=== PATIENT | female | born 1940 | race Caucasian/White ===

== ENCOUNTER 2018-07-11 10:02 | Observation (INO) | payer OTHER ==
[2018-07-11] MEDS ORDERED: NS 1,000 ML IV ONE (10:09)
--- NOTE | 2018-07-11 10:36 | EDPHY ---
H & P Stated Complaint: Low blood pressure - feels dizzy. Time Seen by Provider: 07/11/18 10:09 HPI/ROS: CHIEF COMPLAINT: Fatigue HISTORY OF PRESENT ILLNESS: The patient presents to the ED after she woke this morning with fatigue. The patient does have a history of paroxysmal atrial fibrillation and currently is on Xarelto. The patient has been out visiting family from [place]. She exercises frequently without any complaints of chest pain or shortness of breath. She denies any acute chest pain or shortness of breath today. The patient did have a recent fall resulting in a left rib injury. The patient also has a history of hypotension and is currently on glucocorticoids for autonomic dysfunction. The patient has been intolerant to amiodarone in the past. She did require cardioversion x1 last year. She takes no medications for hypertension or rate control. The patient denies any fever, cough or congestion. She denies asymmetric calf pain or swelling. She denies pleuritic chest pain REVIEW OF SYSTEMS: A comprehensive 10 point review of systems is otherwise negative aside from elements mentioned in the history of present illness. Source: Patient Exam Limitations: No limitations - Personal History Current Tetanus Diphtheria and Acellular Pertussis (TDAP): Yes - Medical/Surgical History Hx Asthma: No Hx Chronic Respiratory Disease: Yes Hx Diabetes: No Hx Cardiac Disease: No Hx Renal Disease: No Hx Cirrhosis: No Hx Alcoholism: No Hx HIV/AIDS: No Hx Splenectomy or Spleen Trauma: No Other PMH: Low blood pressure. A-fib. Chronic lung infection - MAC - Social History Smoking Status: Never smoked - Physical Exam Exam: General Appearance: Alert, no distress Eyes: Pupils equal and round no pallor or injection ENT, Mouth: Mucous membranes moist Respiratory: There are no retractions, lungs are clear to auscultation Cardiovascular: Irregular rate consistent with atrial fibrillation Gastrointestinal: Abdomen is soft and nontender, no masses, bowel sounds normal Neurological: A&O, normal motor function, normal sensory exam, normal cranial nerves Skin: Warm and dry, no rashes Musculoskeletal: Neck is supple nontender Extremities: symmetrical, full range of motion Psychiatric: Patient is oriented X 3, there is no agitation Constitutional: Initial Vital Signs Temperature (C) 36.6 C 07/11/18 10:03 Heart Rate 94 07/11/18 10:03 Respiratory Rate 16 07/11/18 10:03 Blood Pressure 105/70 07/11/18 10:03 O2 Sat (%) 98 07/11/18 10:03 O2 Delivery Mode Room Air Allergies/Adverse Reactions: azithromycin Allergy (Verified 07/11/18 10:09) doxycycline Allergy (Verified 07/11/18 10:09) Home Medications: Medication Instructions Recorded JOHNATHAN-CITRATE PLUS VITAMIN D TAB 07/11/18 Fludrocortisone Acetate 07/11/18 Midodrine HCl 07/11/18 Thyroid 07/11/18 Xarelto 07/11/18 Medical Decision Making - Diagnostics EKG Interpretation: EKG: Complete interpretation has been separately recorded in the [facility] archive. Summary impression: Atrial fibrillation, rate 114, no ST segment elevation noted, occasional PVC Imaging Results: Imaging Impressions Chest X-Ray 07/11/18 10:36 Impression: 1. Subacute nondisplaced anterior left 6th rib fracture. 2. Diffuse interstitial prominence, which could related to emphysema/COPD, with right perihilar scarring/atelectasis. 3. Cardiomegaly without failure. ED Course/Re-evaluation: The patient presents to the ED with fatigue secondary to recurrent atrial fibrillation. The patient has no symptoms suggestive of cardiac ischemia or pulmonary embolism. The patient has been intolerant to medications for rate control in the past secondary to her adrenal insufficiency. The patient did receive a L of normal saline in the emergency department. She was quite concerned about hypotension prior to arrival. I discussed the case with Dr. Kramer from Cardiology. The patient will be admitted to the PCU under the care of the hospitalist service. They will attempt to do cardioversion this afternoon if possible. If not will be scheduled tomorrow morning. I discussed the case with Dr. Parker at noon who will admit the patient. Additionally the patient did have a chest x-ray which demonstrates a nondisplaced left rib fracture from her recent fall. There is no evidence of a hemothorax or pneumothorax. Differential Diagnosis: Differential diagnosis considered includes atrial fibrillation, atrial flutter, heart failure, rib fracture, pneumothorax, hemothorax - Data Points Laboratory Results: Laboratory Results 07/11/18 10:24 07/11/18 10:24 07/11/18 07/11/18 07/11/18 10:26 10:24 10:24 WBC 6.03 10^3/uL 10^3/uL (3.80-9.50) RBC 3.80 10^6/uL L 10^6/uL (4.18-5.33) Hgb 11.1 g/dL L g/dL (12.6-16.3) Hct 34.1 % L % (38.0-47.0) MCV 89.7 fL fL (81.5-99.8) MCH 29.2 pg pg (27.9-34.1) MCHC 32.6 g/dL g/dL (32.4-36.7) RDW 15.0 % % (11.5-15.2) Plt Count 202 10^3/uL 10^3/uL (150-400) MPV 10.7 fL fL (8.7-11.7) Neut % (Auto) 60.3 % % (39.3-74.2) Lymph % (Auto) 27.4 % % (15.0-45.0) Bollinger % (Auto) 10.3 % % (4.5-13.0) Eos % (Auto) 1.0 % % (0.6-7.6) Baso % (Auto) 0.7 % % (0.3-1.7) Nucleat RBC Rel Count 0.0 % % (0.0-0.2) Absolute Neuts (auto) 3.64 10^3/uL 10^3/uL (1.70-6.50) Absolute Lymphs (auto) 1.65 10^3/uL 10^3/uL (1.00-3.00) Absolute Monos (auto) 0.62 10^3/uL 10^3/uL (0.30-0.80) Absolute Eos (auto) 0.06 10^3/uL 10^3/uL (0.03-0.40) Absolute Basos (auto) 0.04 10^3/uL 10^3/uL (0.02-0.10) Absolute Nucleated RBC 0.00 10^3/uL 10^3/uL (0-0.01) Immature Gran % 0.3 % % (0.0-1.1) Immature Gran # 0.02 10^3/uL 10^3/uL (0.00-0.10) Sodium 139 mEq/L mEq/L (135-145) Potassium 3.7 mEq/L mEq/L (3.3-5.0) Chloride 103 mEq/L mEq/L (97-110) Carbon Dioxide 25 mEq/l mEq/l (22-31) Anion Gap 11 mEq/L mEq/L (6-14) BUN 23 mg/dL mg/dL (7-23) Creatinine 1.0 mg/dL mg/dL (0.6-1.0) Estimated GFR 54 Glucose 116 mg/dL H mg/dL (70-100) Calcium 9.2 mg/dL mg/dL (8.5-10.4) POC Troponin I 0.01 ng/mL ng/mL (0.00-0.08) Medications Given: Discontinued Medications Sodium Chloride (Ns) 1,000 mls @ 0 mls/hr IV EDNOW ONE; Wide Open PRN Reason: Protocol Stop: 07/11/18 10:10 Last Admin: 07/11/18 10:52 Dose: 1,000 mls Point of Care Test Results: Chemistry 07/11/18 10:26 POC Troponin I 0.01 ng/mL ng/mL (0.00-0.08) Departure - Departure Disposition: [facility] Inpatient Acute Clinical Impression: Atrial fibrillation with RVR Rib fracture Qualifiers: Encounter type: initial encounter Rib fracture type: single rib Fracture type: closed Laterality: left Qualified Code(s): S22.32XA - Fracture of one rib, left side, initial encounter for closed fracture Condition: Good Referrals: NONE *PRIMARY CARE P,. [Primary Care Provider] - As per Instructions
[2018-07-11 10:49] LABS: PLATELET COUNT 202 10^3/uL (150-400)
--- NOTE | 2018-07-11 12:08 | CPEKG ---
Test Reason : OPEN Blood Pressure : / mmHG Vent. Rate : 114 BPM Atrial Rate : 147 BPM P-R Int : 163 ms QRS Dur : 077 ms QT Int : 337 ms P-R-T Axes : 161 038 004 degrees QTc Int : 465 ms Atrial fibrillation Paired ventricular premature complexes Consider left ventricular hypertrophy Confirmed by Dayron Rizvi ([id number]) on 07/11/2018 12:08:22 PM Referred By: Confirmed By:Dayron Rizvi
[2018-07-11] MEDS ORDERED: ONDANSETRON DISINTEGRATING 4 MG TAB PO PRN (12:34)
[2018-07-11] MEDS ORDERED: ONDANSETRON 4 MG/2 ML VIAL IVP PRN (12:34)
[2018-07-11] MEDS ORDERED: DILTIAZEM 25 MG/5 ML VIAL IVP SCH (12:45)
--- NOTE | 2018-07-11 13:04 | GHP ---
DATE OF ADMISSION: 07/11/2018 The patient is a delightful 78-year-old female with a history of paroxysmal atrial fibrillation, auto nomic insufficiency, and mycobacterium avium complex, who presents with atrial fibrillation. This ty pically presents as malaise and palpitations. She was diagnosed not this past November, but November. At that point in time, she was cardioverted, but it did not last. She was started on amiodarone , which she found fairly debilitating and stopped taking it after a few weeks. She has had no recurr ence. She lives in [facility] near [place]. She is currently here helping her daughter a nd son-in-law move. She did crash into some stairs injuring her flank the other day and was diagnose d with a rib fracture. She has not had chest pain. She has not had lower extremity edema. She has not had PND or orthopnea . She has had a couple of coronary angiograms and has no coronary disease per her history. No fever , chills, cough, sputum, nausea, vomiting, diarrhea. She does not drink much alcohol. REVIEW OF SYSTEMS: Complete 10-point review of systems conducted and negative except as noted in HPI . PAST MEDICAL HISTORY: 1. Atrial fibrillation as in the HPI. 2. Autonomic insufficiency, which was diagnosed after a long workup at the [place], mostly for hypotension. She takes midodrine and . 3. History of rheumatic fever as a child. She denies having mitral stenosis. 4. 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 SOCIAL HISTORY: Retired nurse. No tobacco. Rare alcohol. Lives in [facility]. FAMILY HISTORY: Parents . PHYSICAL EXAMINATION: VITAL SIGNS: Temp 36.6, blood pressure 105/70, breathing 16 times a minute, 9 8% on room air. GENERAL: No acute distress. HEENT: Sclerae anicteric. Oropharynx clear. Mucous membranes moist. NECK: Supple. No lymphadenopathy or JVD. LUNGS: Clear to auscultation bilateral ly. HEART: S1, S2. Tachycardic. ABDOMEN: Soft, nontender, nondistended. LOWER EXTREMITIES: No edema. Calves are nontender. SKIN: Without rash. NEUROLOGIC: Exam is nonfocal. LABORATORY DATA: White count 6, hematocrit 34, unknown baseline. Platelets 202,000. Sodium 139, po tassium 3.7, chloride 103, bicarb 25, BUN 23, creatinine 1.0, glucose 116. Point of care troponin is 0.01. EKG interpreted by me shows atrial fibrillation at 114, with normal axis and intervals. No S T-T wave changes. She has some upsloping ST depressions in V5, V6. No corresponding changes in 1 or L. Chest x-ray interpreted by me shows no infiltrate, cardiomegaly without failure, and a subacute nondisplaced left rib fracture. I discussed the case with Dr. Leonardo Rizvi. ASSESSMENT AND PLAN: A 78-year-old female with rib fracture, paroxysmal atrial fibrillation. 1. Atrial fibrillation, is paroxysmal. She tolerates it poorly. The case has been discussed with Juaquin horowitz. Will see her for possible cardioversion today if not tomorrow. She has not been intolera nt of diltiazem in the past. Will give her 1 time dose of 10 mg. She will be n.p.o. 2. Anemia. It is unclear if this is a new finding. She has good primary care in [place]. 3. Rib fracture. It is possible that the pain from this is driving her atrial fibrillation. I will give her a lidocaine patch. 4. Mycobacterium avium complex. She is afebrile. She was noted to have significant infiltrate seen on our chest x-ray. Is being followed as an outpatient. DISPOSITION: Observation. /[id number]/MODL
[2018-07-11] MEDS ORDERED: ATROPINE SULFATE 1 MG/10 ML SYR IVP ONE (13:06)
--- NOTE | 2018-07-11 13:45 | GCON ---
CARDIOLOGY CONSULTATION CHIEF COMPLAINT: Palpitations. HISTORY OF PRESENT ILLNESS: This is a 78-year-old female with a history of paroxysmal atrial fibrill ation, who apparently woke up this morning with complaints of fatigue, lightheadedness, and palpitati ons. The patient came to the emergency room where she was found to have atrial fibrillation with rap id ventricular response with a rate of 140. She denies any chest pain. She does have a history of P AF and has been cardioverted 2 years ago. 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 Additi onally, she has been tried on amiodarone in the past as well, which had severe side effects. Current ly, she is resting quietly. Blood pressure is stable at 120/70, heart rate is 142 with irregular rhy thm. PAST MEDICAL HISTORY: Significant for paroxysmal atrial fibrillation, Person's disease. HOME MEDICATIONS: Consist of fluticasone, midodrine, Xarelto. SOCIAL HISTORY: Occasional alcohol use. No smoking. Is . FAMILY HISTORY: Noncontributory. REVIEW OF SYSTEMS: HEENT: The patient denies any visual changes. No headache. No throat pain. No neck pain. No dental issues. CARDIOVASCULAR: She indicates positive palpitations. RESPIRATORY: No shortness of breath currently. ABDOMEN: No abdominal discomfort. MUSCULOSKELETAL: No upper ext remity pain. No lower extremity pain. No lower extremity edema. NEUROLOGICAL: No new neurologic d eficits. PHYSICAL EXAM: VITAL SIGNS: Patient is currently afebrile, . Blood pressure is currently 120/72, heart rate of 142, respirations 12, sat 95% on room air. HEENT: Pupils equal, round, and r eactive to light and accommodation. Extraocular movements intact. CARDIOVASCULAR: Irregularly irre gular, S1, S2. Soft 2/6 systolic murmur heard best at the right upper sternal border. LUNGS: Clear to auscultation bilaterally. ABDOMEN: Soft, nontender. No guarding. EXTREMITIES: No clubbing, n o cyanosis, no edema. NEUROLOGIC: The patient is alert and oriented x3. LABORATORY VALUES: Currently show a white cell of 6, hemoglobin 11, hematocrit 34, platelet count of 202. Chemistry showing sodium 139, potassium 3.7, creatinine of 1.0, calcium 9.2. Troponins are ne gative x1 set. ASSESSMENT/PLAN: Atrial fibrillation, rapid ventricular response. At this time, we will plan on victor m ctively cardioverting the patient given her symptomatic status and inability to tolerate rate-control ling medications. The patient has been compliant with her Xarelto for the last year and indicates ra rely missing any dosing. We will check a surface echo prior to her cardioversion, which will be plan judy later this afternoon, since the patient did have a light breakfast at 8 a.m. /[id number]/MODL
--- NOTE | 2018-07-11 14:19 | ECHO ---
[email or web address] [address] [address] Main: [phone] Fax: Transthoracic Echocardiogram Name: ARNOLD SPANN MR#: [id number] Study Date: 07/11/2018 Study Time: 01:17 PM Date of : 1940 Age: 78 year(s) Height: 165.1 cm (65 in.) Weight: 53.52 kg (118 lb.) BSA: 1.58 m2 Gender: Female Examination: Echo Indication: New onset of Atrial Fibrillation Image Quality: Contrast: Requested by: Jaiden Manriquez BP: 94 mmHg/66 mmHg Heart Rate: Rhythm: Indication: New onset of Atrial Fibrillation Procedure Staff Jawbone Puller: Shahid Garibay RDCS Reading Physician: Jaiden Manriquez MD Requesting Provider: Conclusions: Normal global systolic LV function. EF is 68 %. There is no significant mitral valve regurgitation. There is no significant aortic valve regurgitation. Measurements: Chambers Valvular Assessment AV/MV Valvular Assessment TV/PV Normal Normal Normal Name Value Range Name Value Range Name Value Range Ao Genesis (MM): 2.8 cm (2.2 cm-3.7 AV Vmax: 1.26 m/s (1 m/s-1.7 TR Vmax: 2.62 mm/s ( - ) cm) m/s) TR PGmax: 27 mmHg ( - ) IVSd (2D): 0.9 cm (0.6 cm-1.1 AV maxP mmHg ( - ) syst. PAP: 32 mmHg ( - ) cm) LVOT Vmax: 0.72 m/s (0.7 m/s-1.1 PV Vmax: 1.11 m/s (0.6 m/s-0.9 LVDd (2D): 3.9 cm (3.9 cm-5.3 m/s) m/s) cm) MV E Vmax: 0.74 m/s ( - ) PV PGmax: 5 mmHg ( - ) LVDs (2D): 2.4 cm (2.1 cm-4 cm) LVPWd (2D): 1.0 cm ( - ) LVEF (2D): 68 (>=54 %) Continued Measurements: Chambers Valvular Assessment AV/MV Valvular Assessment TV/PV Name Value Name Value Name Value LADs Lon.4 cm MV E/E' Septal: 16.20 CVP (est.): 5 mmHg LA Area: 18.4 cm2 MV E/E' Lateral: 14.90 LA Volume: 57 ml LA Volume Index: 36.1 ml/m2 Patient: ARNOLD SPANN Study Date: 07/11/2018 Page 1 of 2 01:17 PM Findings: Left Ventricle: Normal size left ventricle. No LV hypertrophy. Normal global systolic LV function. EF is 68 %. No regional wall motion abnormality. The rhythm is atrial fibrillation. The rate ranged from 120-140 bpm during exam.. Right Ventricle: Normal size right ventricle. Normal RV function. Left Atrium: The left atrium is mildly dilated. Right Atrium: The right atrium is mildly dilated. Mitral Valve: The mitral valve is normal in appearance. Mild mitral valve leaflet calcification is present. No mitral stenosis is present. There is no significant mitral valve regurgitation. Aortic Valve: The aortic valve is tri-leaflet and functions normally. There is no significant aortic valve regurgitation. No aortic valve stenosis is present. Tricuspid Valve: The tricuspid valve is normal in appearance and function. Trivial tricuspid valve regurgitation. The pulmonary artery pressure is normal. Pulmonic Valve: The pulmonic valve is normal in appearance and function. Aorta: The aorta is normal. Pericardium: No pericardial effusion. (No Signature Object) Patient: ARNOLD SPANN Study Date: 07/11/2018 Page 2 of 2 01:17 PM D:_[id number]
[2018-07-11] MEDS ORDERED: DILTIAZEM 25 MG/5 ML VIAL IVP ONE (14:45)
[2018-07-11] MEDS: LIDOCAINE 4%/MENTHOL 1% PATCH TD SCH (14:59)
[2018-07-11] MEDS ORDERED: PROPOFOL 200 MG/20 ML VIAL ONE (15:59)
[2018-07-11] MEDS ORDERED: ATROPINE SULFATE 1 MG/10 ML SYR ONE (15:59)
--- NOTE | 2018-07-11 16:09 | PDANEPAE ---
ANE History of Present Illness 78 yo for dccv afib ANE Past Medical History - Cardiovascular History Hx Hypertension: No Hx Arrhythmias: Yes Hx Chest Pain: No Hx Coronary Artery / Peripheral Vascular Disease: No - Pulmonary History Hx Oxygen in Use at Home: No Hx Sleep Apnea: No - Endocrine History Hx Diabetes: No ANE Review of Systems Review of Systems: - Exercise capacity METS (RN): 4 METS ANE Patient History - Allergies Allergies/Adverse Reactions: azithromycin Allergy (Verified 07/11/18 14:50) Vomiting doxycycline Allergy (Verified 07/11/18 14:50) Vomiting - Home Medications Home medications: home medication list seen and reviewed Home Medications: Calcium Carb W/Vit D [Calcium Carb W/Vit D 500/200 (*)] 500 mg PO BID@09/16 [Last Taken 07/11/18] Clindamycin Phosphate 1 roby TP BID 07/11/18 [Last Taken 07/11/18] Clobetasol Propionate 1 roby TP DAILY PRN 07/11/18 [Last Taken 07/10/18] Fludrocortisone Acetate [Florinef 0.1 MG (RX)] 0.2 mg PO DAILY@07/11/18 [ Last Taken 07/11/18] Levothyroxine [Synthroid 25 mcg (*)] 12.5 mcg PO DAILY@07/11/18 [Last Taken 07/11/18] Midodrine HCl 6.5 mg PO BID@,07/11/18 [Last Taken 07/11/18] Rivaroxaban [Xarelto 15mg (*)] 15 mg PO DAILY@07/11/18 [Last Taken 07/11/18] - Smoking Hx Smoking Status: Never smoked ANE Labs/Vital Signs - Labs Result Diagrams: 07/11/18 10:24 07/11/18 10:24 - Vital Signs Blood Pressure: 80/51 Heart Rate: 90 Respiratory Rate: 16 O2 Sat (%): 97 Height: 5 ft 5 in Weight: 53.524 kg ANE Physical Exam - Airway Mallampati Score: Class 2 Mouth exam: normal dental/mouth exam - Pulmonary Pulmonary: no respiratory distress - Cardiovascular Cardiovascular: regular rate and rhythym - ASA Status ASA Status: II ANE Anesthesia Plan Anesthesia Plan: GA with mask Urgent/Emergent Case: Armani dyson completed preop but documented later for safe timely pt care
--- NOTE | 2018-07-11 16:12 | POSTANESTH ---
Post Anesthetic Evaluation Cardiovascular Status: Normal, Stable Respiratory Status: Normal, Stable, Requires Airway Assist Pain Control: Adequate, Prn Tx Ordered Nausea/Vomiting Control: Adequate, Prn Tx Ordered Complications Possibly Related to Anesthesia: None Noted
--- NOTE | 2018-07-11 16:24 | CPEKG ---
Test Reason : OPEN Blood Pressure : / mmHG Vent. Rate : 063 BPM Atrial Rate : 063 BPM P-R Int : 158 ms QRS Dur : 084 ms QT Int : 423 ms P-R-T Axes : 053 058 018 degrees QTc Int : 434 ms Sinus rhythm Sinus pause Probable left atrial enlargement Borderline T wave abnormalities Sinus rhythm has replaced atrial fibrillation noted on prior ECG Confirmed by Navjot Perera ([id number]) on 07/11/2018 4:24:04 PM Referred By: Confirmed By:Navjot Perera
--- NOTE | 2018-07-11 16:26 | PDPROPOC ---
Sedation Plan of Care Sedation Plan of Care: mental status noted, patient educated of risks, benefits , alternatives, patient can tolerate sedation ASA Classification: ASA 2 Planned drugs: other Mallampati Score: Class 2 Mallampati Reference Image: Patient passed 3-3-2 rule?: Yes
--- NOTE | 2018-07-11 16:26 | PDHPUP ---
History & Physical Update H&P update statement: This history and physical update is based on an assessment of the patient which was completed after admission or registration (within 24 hours), but prior to the surgery/procedure. H&P update: H&P reviewed & patient examined, no change in patient's condition since H&P completed
[2018-07-11] MEDS ORDERED: PATCH REMOVAL 1 EA PATCH TD SCH (21:00)
--- NOTE | 2018-07-11 22:07 | CPIP ---
DATE OF PROCEDURE: 07/11/2018 INDICATION FOR PROCEDURE: Atrial fibrillation. PROCEDURE: As per [facility] protocol, the patient was brought in a fasting state to [facility]. Anesthesia was present for the entire duration of the procedure. The patient has a history of r epair of paroxysmal atrial fibrillation with recent atrial fibrillation with a rapid ventricular resp onse. The patient has not been responsive to medical therapy, rate-controlling agents, or antiarrhyt hmics in the past. After informed consent was obtained, the patient was sedated by anesthesia. Afte r sedation was performed, the patient was cardioverted from her baseline rhythm of atrial fibrillatio n at a rate of 94 to sinus rhythm at a synchronized cardioversion of 200 joules. Post cardioversion, the patient's rate was approximately 52 in a sinus rhythm. Blood pressure was 120/70 throughout the entire procedure and 130/80 at the end of the procedure. The patient tolerated the procedure well w ith no complications. IMPRESSION: Successful cardioversion utilizing synchronized 200 joules, converting atrial fibrillati on to normal sinus rhythm. PLAN: The patient will be returned back to her room and plan for discharge per primary team. /[id number]/MODL
[2018-07-11] MEDS: ACETAMINOPHEN 325 MG TAB PO PRN (22:41)
[2018-07-12] MEDS ORDERED: LEVOTHYROXINE 25 MCG TAB PO SCH (08:32)
[2018-07-12] MEDS ORDERED: MIDODRINE HCL 5 MG TAB PO SCH (08:32)
[2018-07-12] MEDS ORDERED: FLUDROCORTISONE ACETATE 0.1 MG TAB PO SCH (08:45)
[2018-07-12] MEDS: ACETAMINOPHEN 325 MG TAB PO PRN (08:56)
[2018-07-12] MEDS ORDERED: CLINDAMYCIN PHOSPHATE TP SCH (09:00)
[2018-07-12] MEDS: LIDOCAINE 4%/MENTHOL 1% PATCH TD SCH (09:51)
[2018-07-12 10:07] VITALS: BP 135/72
--- NOTE | 2018-07-12 10:34 | GDS ---
DIAGNOSES: 1. Atrial fibrillation with rapid ventricular response status post cardioversion. 2. Autonomic insufficiency, severe, currently on medications to control this. 3. History of rheumatic fever as a child. 4. 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 PROCEDURES DONE: 1. Echocardiogram, EF 68%. 2. Interventional cardiac procedure, successful cardioversion into normal sinus rhythm. CONSULTATIONS: Jaiden Manriquez, Cardiology. HOSPITAL COURSE: The patient is a 78-year-old with a history significant for severe orthostatic hypo tension on medications, as well as previous atrial fibrillation. She came in with palpitations and w as found to be in atrial fibrillation with rapid ventricular response. She was admitted to the [facility], monitored, and evaluated by Cardiology. She had an echocardiogram and underwent cardioversion, which was successful into sinus rhythm. She has been previously anticoagulated with Xarelto. Curren jordana, she feels good. She continues in sinus rhythm with PACs and wants to go home. CONDITION ON DISCHARGE: Good. She is afebrile. Heart rate 65, blood pressure 147/85, she is 90% on room air. DISCHARGE MEDICATIONS: Please see discharge medication form. FOLLOWUP: She will follow up with her primary care provider in [place], and she also plans to follo w up with a asphalt raker when she returns home. /[id number]/MODL
[2018-07-12] MEDS ORDERED: CALCIUM CARB W/VIT D 500 MG TAB PO SCH (13:00)
[2018-07-13] MEDS ORDERED: RIVAROXABAN 15 MG TAB PO SCH (08:32)
== END 2018-07-12 10:27 | disposition home or self-care (01) ==
LOC: F2W 13:55
PROVIDERS: ADMIT Internal Medicine; ATTEND Internal Medicine
PROC: 5A2204Z Restoration of Cardiac Rhythm, Single (ICD-10-PCS; principal; 2018-07-11)
DX: I48.0 Paroxysmal atrial fibrillation (principal); G90.8 Other disorders of autonomic nervous system; I95.9 Hypotension, unspecified; A31.0 Pulmonary mycobacterial infection; E86.9 Volume depletion, unspecified; S22.32XA Fracture of one rib, left side, initial encounter for closed fracture; W19.XXXA Unspecified fall, initial encounter; Z86.79 Personal history of other diseases of the circulatory system; Z79.01 Long term (current) use of anticoagulants
CPT/HCPCS: 71046; 92960; 93005; 93306; 96374; 99285; G0378; J2704; 84484-PO; J0461

== ENCOUNTER 2018-09-01 08:21 | Emergency (ER) | payer OTHER ==
--- NOTE | 2018-09-01 08:37 | EDPHY ---
H & P Stated Complaint: A - Fib since 3am, feels lightheaded, dizzy and nauseous. Time Seen by Provider: 09/01/18 08:30 HPI/ROS: CHIEF COMPLAINT: Recurrent atrial fibrillation HISTORY OF PRESENT ILLNESS: The patient has a history of paroxysmal atrial fibrillation. She presents to the ED with recurrent atrial fibrillation that began at 3:00 a.m. in the morning. The patient has had nothing to eat or drink outside of her regular medications. The patient has a history of autonomic dysfunction and cannot tolerate elizabeth blocking agents. She has been entirely compliant with her Xarelto. She was seen in the emergency department approximately 2 months ago with similar symptoms. She underwent cardioversion at that point time. She followed up with her behavior interventionist in [place] who was reluctant to consider ablation as the patient had been asymptomatic for 2 years. The patient is currently visiting [place] from [place]. She denies any acute chest pain or shortness of breath. She denies additional acute complaints. REVIEW OF SYSTEMS: A comprehensive 10 point review of systems is otherwise negative aside from elements mentioned in the history of present illness. Source: Patient Exam Limitations: No limitations - Personal History Current Tetanus Diphtheria and Acellular Pertussis (TDAP): Yes - Medical/Surgical History Hx Asthma: No Hx Chronic Respiratory Disease: Yes Hx Diabetes: No Hx Cardiac Disease: No Hx Renal Disease: No Hx Cirrhosis: No Hx Alcoholism: No Hx HIV/AIDS: No Hx Splenectomy or Spleen Trauma: No Other PMH: Low blood pressure. A-fib. Chronic lung infection - MAC. - Social History Smoking Status: Never smoked - Physical Exam Exam: General Appearance: Alert, no distress Eyes: Pupils equal and round no pallor or injection ENT, Mouth: Mucous membranes moist Respiratory: There are no retractions, lungs are clear to auscultation Cardiovascular: Tachycardic, irregular Gastrointestinal: Abdomen is soft and nontender, no masses, bowel sounds normal Neurological: A&O, normal motor function, normal sensory exam, normal cranial nerves Skin: Warm and dry, no rashes Musculoskeletal: Neck is supple nontender Extremities: symmetrical, full range of motion Constitutional: Initial Vital Signs Temperature (C) 36.6 C 09/01/18 08:24 Heart Rate 91 09/01/18 08:24 Respiratory Rate 16 09/01/18 08:24 Blood Pressure 106/68 09/01/18 08:24 O2 Sat (%) 97 09/01/18 08:24 O2 Delivery Mode [Procedural Non-Rebreather Mask 2nd] O2 Delivery Mode [Procedural Non-Rebreather Mask 1st] O2 Delivery Mode Non-Rebreather Mask O2 (L/minute) [Procedural 2nd] 15 O2 (L/minute) [Procedural 1st] 15 O2 (L/minute) 15 Allergies/Adverse Reactions: azithromycin Allergy (Verified 07/11/18 14:50) Vomiting doxycycline Allergy (Verified 07/11/18 14:50) Vomiting Home Medications: Medication Instructions Recorded Calcium Carb W/Vit D [Calcium Carb 500 mg PO BID@,07/11/18 W/Vit D 500/200 (*)] Clindamycin Phosphate 1 roby TP BID 07/11/18 Clobetasol Propionate 1 roby TP DAILY PRN 07/11/18 Fludrocortisone Acetate [Florinef] 0.2 mg PO DAILY@07/11/18 Levothyroxine [Synthroid 25 mcg 12.5 mcg PO DAILY@07/11/18 (*)] Midodrine HCl 6.5 mg PO BID@,07/11/18 Rivaroxaban [Xarelto 15mg (*)] 15 mg PO DAILY@07/11/18 Medical Decision Making - Diagnostics EKG Interpretation: EKG: Complete interpretation has been separately recorded in the [facility] archive. Summary impression: Atrial fibrillation, rate 148, nonspecific ST T wave changes noted Post conversion EKG: EKG: Complete interpretation has been separately recorded in the [facility] archive. Summary impression: Sinus rhythm, multiple PVCs Procedures: Procedure: Conscious sedation. Indication: Cardioversion The patient is an appropriate candidate to tolerate procedural sedation. The patient's vital signs and mental status are appropriate. The risks, benefits and alternatives of the sedation were discussed with the patient. The patient is ASA classification 2. The patient's Mallampati airway score was 2 and the patient did meet the 3-3-2 airway measurements. A time out was completed. The patient was sedated with 60 mg of propofol. The patient was monitored with continuous pulse oximetry, monitoring and evaluation advisor and end tidal CO2. There were no complications and no significant hypoxemia. I performed both the sedation and the procedure. The total time I spent at the bedside during the procedural sedation was 16 min minutes. The patient was examined after the procedural sedation and has returned to their pre-sedation baseline with normal vital signs and a normal examination. Procedure: Electrical cardioversion. Indication: Rapid atrial fibrillation, intolerant to medical therapy. Risks, benefits, alternatives discussed with the patient and consent obtained. The patient was on a continuous monitoring and evaluation advisor, with airway equipment at the bedside. The patient was on continuous pulse oximetry. The cardioversion was performed with 200 joules biphasic current. The cardioversion was successful. The patient tolerated the procedure well with no complications. The procedure was performed by myself. ED Course/Re-evaluation: I reviewed the patient's past medical records including the results of her prior cardioversion. The patient has been compliant with her Xarelto. She has been npo since midnight. She is requesting cardioversion as she is intolerant to medical therapy. The patient was verbally consented to undergo conscious sedation and cardioversion. She understood the risks to include excessive sedation and failed cardioversion. The patient received conscious sedation with 60 mg of propofol IV. The patient was then cardioverted by myself successfully using a single 200 joule shock. The patient did receive 1 L of normal saline intravenously. 9:20 a.m.: The patient tolerated cardioversion well. Currently recovering from conscious sedation. Blood pressure is currently 157/92, sinus rhythm rate 60, frequent ectopy noted. 10:00 a.m.: The patient is doing well without acute complaints. She will be discharged from the emergency department under the care of her today. Differential Diagnosis: Differential diagnosis considered includes atrial fibrillation, ventricular tachycardia, premature ventricular contractions Departure - Departure Disposition: Home, Routine, Self-Care Clinical Impression: Atrial fibrillation with RVR Condition: Good Instructions: A-fib (Atrial Fibrillation) (DC) Additional Instructions: 1. Please follow-up with your behavior interventionist to discuss further treatment options of your atrial fibrillation. 2. Please return to the ED for recurrent palpitations, chest pain, difficulty breathing or other concerns.
[2018-09-01] MEDS ORDERED: PROPOFOL 200 MG/20 ML VIAL ONE (08:54)
[2018-09-01] MEDS ORDERED: PROPOFOL/EMULSION 1,000 MG/100 ML BOTTLE IV ONE (08:54)
--- NOTE | 2018-09-01 09:42 | CPEKG ---
Test Reason : OPEN Blood Pressure : / mmHG Vent. Rate : 066 BPM Atrial Rate : 077 BPM P-R Int : 148 ms QRS Dur : 084 ms QT Int : 399 ms P-R-T Axes : 073 059 048 degrees QTc Int : 418 ms Sinus rhythm Multiple ventricular premature complexes Probable left atrial enlargement Confirmed by Dayron Rizvi ([id number]) on 09/01/2018 9:42:02 AM Referred By: Confirmed By:Dayron Rizvi
--- NOTE | 2018-09-01 09:42 | CPEKG ---
Test Reason : OPEN Blood Pressure : / mmHG Vent. Rate : 148 BPM Atrial Rate : 163 BPM P-R Int : 056 ms QRS Dur : 074 ms QT Int : 325 ms P-R-T Axes : -42 067 -77 degrees QTc Int : 511 ms Atrial fibrillation with rapid V-rate Ventricular premature complex Consider left ventricular hypertrophy Repolarization abnormality, prob rate related Confirmed by Dayron Rizvi ([id number]) on 09/01/2018 9:41:59 AM Referred By: Confirmed By:Dayron Rizvi
[2018-09-01 10:09] VITALS: BP 110/81
== END 2018-09-01 10:09 | disposition home or self-care (01) ==
PROC: 5A2204Z Restoration of Cardiac Rhythm, Single (ICD-10-PCS; principal; 2018-09-01)
DX: I48.0 Paroxysmal atrial fibrillation (principal); Z79.01 Long term (current) use of anticoagulants
CPT/HCPCS: 92960; 93005; 99152; 99285; J2704